=== PATIENT | male | born 1945 | race Caucasian/White ===

== ENCOUNTER 2017-11-09 02:06 | Emergency (ER) | payer OTHER, BC ==
--- OUTSIDE RECORDS SUMMARY | 2017-11-09 02:09 | XMS REPORT | Clinical Summary ---
:1945 Author Organization [facility] Address [address] [place] [address] Care Team Providers Name Role Phone Luis Angel Landon MD Primary Care Provider Allergies No Known Allergies Current Medications Prescription Sig. Disp. Refills Start Date End Date Status irbesartan (AVAPRO) 300 MG TK 1 T PO QD 1 01/19/2016 Active tablet hydrochlorothiazide Take 25 mg by 1 11/09/2015 Active (HYDRODIURIL) 25 MG tablet mouth once daily. glimepiride (AMARYL) 4 MG Take 4 mg by 1 12/17/2015 Active tablet mouth 2 (two) times a day. carvedilol (COREG) 25 MG Take 25 mg by Active tablet mouth 2 (two) times a day with meals. busPIRone (BUSPAR) 10 MG Take 10 mg by Active tablet mouth 3 (three) times a day. clonIDINE HCl (CATAPRES) 0.3 Take 0.3 mg by Active MG tablet mouth 2 (two) times a day. saxagliptin (ONGLYZA) 5 mg Take 2.5 mg by Active tablet mouth daily. cholecalciferol, vitamin D3, Take 2,000 Active (VITAMIN D3) 2,000 unit Units by mouth capsule capsule daily. aspirin (ECOTRIN) 81 MG Take 81 mg by Active enteric coated tablet mouth daily. DULoxetine (CYMBALTA) 60 MG Take 60 mg by Active capsule mouth daily. tamsulosin (FLOMAX) 0.4 mg Take 0.4 mg by Active capsule,extended release 24hr mouth daily. finasteride (PROSCAR) 5 mg Take 5 mg by Active tablet mouth daily. pravastatin (PRAVACHOL) 40 MG Take 40 mg by Active tablet mouth daily. Active Problems Problem Noted Date HTN (hypertension) 01/30/2016 BPH (benign prostatic hyperplasia) 01/30/2016 HLD (hyperlipidemia) 01/30/2016 DM (diabetes mellitus screen) 01/30/2016 NADYA (obstructive sleep apnea) 01/30/2016 Colon polyps 01/30/2016 Family history of colon cancer 01/30/2016 Family History Medical History Relation Name Comments Pancreatic cancer Father Colon cancer Mother Relation Name Status Comments Father lung cancer Mother Social History Tobacco Use Types Packs/Day Years Used Date Never Smoker Alcohol Use Drinks/Week oz/Week Comments No Sex Assigned at Date Recorded Not on file Last Filed Vital Signs Not on file Plan of Treatment Health Maintenance Due Date Last Done Comments COLON CANCER SCREENING 01/15/1994 SHINGRIX VACCINE (#1) 01/15/1994 ZOSTER VACCINE 2004 PNEUMOCOCCAL POLYSACCHARIDE VACCINE AGE 65 AND OVER 01/15/2009 PNEUMOCOCCAL-13 01/15/2009 INFLUENZA VACCINE 12/23/2017 Results Not on fileafter 11/08/2016 Insurance Payer Benefit Plan / Group Subscriber ID Type Phone Address MEDICARE MEDICARE PART A AND B xxxxxxxxxx Medicare [place], [place] BCBS BCBS CHOICE PPO/FEDERAL EMPL PPO xxxxxxxxxxxx PPO Home: [address] [phone] [place] [phone]
[2017-11-09] MEDS ORDERED: HYDROCODONE/CHLORPHEN 5 ML/OSYR ONE (03:01)
[2017-11-09 03:07] LABS: Absolute Lymphocytes (CBC) 0.6 K/uL (0.7-4.9); Absolute Neutrophil 10.8 K/uL (1.8-8.0); Basophils % 0.2 % (0-1.3); Eosinophils % 0.8 % (0-4.4); Hematocrit 37.3 % (39.6-49.0); Lymphocytes % 5.1 % (15.3-44.8); MCH 31.7 pg (27.0-35.0); MCV 92.6 fL (80-100); Monocytes % 7.9 % (3.3-12.3); RBC Red Blood Cell Count 4.03 M/uL (4.33-5.43)
[2017-11-09 03:15] LABS: Potassium 4.2 mEq/L (3.6-5.0)
--- NOTE | 2017-11-09 03:15 | EDPHYS ---
Physician Documentation [facility] Name: Jose Ramon Romero Age: 72 yrs Sex: Male : 1945 Arrival Date: 11/09/2017 Time: 02:16 Bed 20 Private MD: Cortez Llanes V ED Physician Ty Moran HPI: 11/09 02:47 This 72 yrs old Male presents to ER via Ambulatory with complaints of Cough, pkl Congestion. 02:47 The patient or guardian reports cough, with productive sputum, that is white. Onset: pkl The symptoms/episode began/occurred yesterday. Associated signs and symptoms: Pertinent positives: sore throat. Historical: - Allergies: 02:41 No Known Allergies; bp - Home Meds: 02:41 amlodipine 10 mg tab 0.5 tab once daily for Hypertension [Active]; aspirin 81 mg Oral bp chew 1 tab once daily [Active]; buspirone 10 mg Oral tab 1 tab 2 times per day for Generalized Anxiety Disorder [Active]; carvedilol 25 mg Oral tab 1 tab 2 times per day for Hypertension [Active]; glipizide 10 mg Oral tab 0.5 tab 2 times per day for Type 2 Diabetes Mellitus [Active]; Onglyza 2.5 mg Oral tab 1 tab BID for Type 2 Diabetes Mellitus [Active]; irbesartan 300 mg Oral tab 1 tab once daily for Hypertension [Active]; Clonidine 3 mg Oral 1 tab 2 times per day for Hypertension [Active]; hydrochlorothiazide 25 mg Oral tab 1 tab once daily for Hypertension [Active]; duloxetine 60 mg Oral cpDR 1 cap once daily [Active]; tamsulosin 0.4 mg Oral cp24 1 cap once daily for Symptomatic Benign Prostatic Hyperplasia [Active]; finasteride 5 mg Oral tab 1 tab once daily for Symptomatic Benign Prostatic Hyperplasia [Active]; Pravachol 40 mg Oral tab 1 tab once daily [Active]; Vitamin D Oral 1000 unit daily [Active]; - PMHx: 02:41 BPH; Diabetes - NIDDM; Hyperlipidemia; Hypertension; bp - Immunization history:: Adult Immunizations up to date, Last tetanus immunization: up to date Pneumococcal vaccine is up to date, Flu vaccine is up to date. - Social history:: Smoking status: Patient/guardian denies using tobacco, Patient uses alcohol, occasionally. - Ebola Screening: : Patient negative for fever greater than or equal to 101.5 degrees Fahrenheit, and additional compatible Ebola Virus Disease symptoms Patient denies exposure to infectious person Patient denies travel to an Ebola-affected area in the 21 days before illness onset No symptoms or risks identified at this time. ROS: 02:47 Eyes: Negative for injury, pain, redness, and discharge. pkl 02:47 ENT: Positive for sore throat. 02:47 Neck: Negative for stiffness. 02:47 Cardiovascular: Negative for chest pain. 02:47 Respiratory: Positive for cough, with white sputum, Negative for shortness of breath, wheezing. 02:47 Abdomen/GI: Negative for abdominal pain, nausea, vomiting, and diarrhea. 02:47 Back: Negative for acute changes. 02:47 : Negative for urinary symptoms. 02:47 MS/extremity: Negative for acute changes. 02:47 Skin: Negative for rash. 02:47 Neuro: Negative for altered mental status. Exam: 02:47 Head/Face: Normocephalic, atraumatic. Eyes: Pupils equal round and reactive to light, pkl extra-ocular motions intact. Lids and lashes normal. Conjunctiva and sclera are non-icteric and not injected. Cornea within normal limits. Periorbital areas with no swelling, redness, or edema. 02:47 ENT: Posterior pharynx: erythema, that is mild. 02:47 Neck: Exam negative for nuchal rigidity. 02:47 Chest/axilla: Exam negative for acute changes. 02:47 Cardiovascular: Rate: normal, Rhythm: regular. 02:47 Respiratory: the patient does not display signs of respiratory distress, Respirations: normal, Breath sounds: are clear throughout. 02:47 Abdomen/GI: Bowel sounds: normal, Palpation: abdomen is soft and non-tender. 02:47 Back: Exam negative for acute changes. 02:47 : Exam negative for acute changes. 02:47 Musculoskeletal/extremity: Exam is negative for acute changes. 02:47 Skin: Exam negative for rash. 02:47 Neuro: Orientation: is normal, Mentation: is normal, Cranial nerves: grossly normal, Motor: is normal. Vital Signs: 02:41 BP 151 / 73; Pulse 84; Resp 18; Temp 97.8; Pulse Ox 97% ; Weight 99.79 kg; bp 03:26 BP 149 / 71; Pulse 80; Resp 16; Pulse Ox 96% ; bp MDM: 02:21 Patient medically screened. pkl 03:11 Data reviewed: lab test result(s), radiologic studies, plain films. pk 11/09 02:47 Order name: CBC with Diff; Complete Time: 03:11 pkl 11/09 02:47 Order name: Chem 7; Complete Time: 03:16 pkl 11/09 02:47 Order name: Strep; Complete Time: 03:23 pk 11/09 02:47 Order name: XRAY CXR (1 view) pk 11/09 03:19 Order name: Throat Culture EDMS Administered Medications: 03:01 Drug: Tussionex Pennkinetic ER 5 ml Route: PO; bp 03:25 Follow up: Response: Marked relief of symptoms bp 03:25 Drug: Zithromax 500 mg Route: PO; bp 03:25 Follow up: Response: Medication administered at discharge. bp Disposition: 11/09/17 03:14 Discharged to Home. Impression: Bronchitis. Pharyngitis. - Condition is Stable. - Prescriptions for Zithromax Z- Miller 250 mg Oral Tablet - take 1 tablet by ORAL route as directed for 5 days Day 1 - take two (2) tablets one time. Day 2, 3, 4 , 5 take one (1) tablet once daily.; 6 tablet. Guaifenesin AC 10- 100 mg/5 mL Oral Liquid - take 10 milliliters by ORAL route every 8 hours As needed; 120 milliliter. - Medication Reconciliation Form, Thank You Letter, Antibiotic Education, Prescription Opioid Use form. - Follow up: Cortez Llanes MD; When: 2 - 3 days; Reason: Re-evaluation by your physician. - Problem is new. - Symptoms have improved. Signatures: Dispatcher [employer] EDMS Ty Moran MD MD pkAlonzo Thomas, RN RN bp Corrections: (The following items were deleted from the chart) 03:28 03:14 11/09/2017 03:14 Discharged to Home. Impression: Bronchitis. Pharyngitis. bp Condition is Stable. Forms are Medication Reconciliation Form, Thank You Letter, Antibiotic Education, Prescription Opioid Use. Follow up: Cortez Llanes; When: 2 - 3 days; Reason: Re-evaluation by your physician. Problem is new. Symptoms have improved. pkl
--- NOTE | 2017-11-09 03:15 | ER ---
Nurse's Notes [facility] Name: Jose Ramon Romero Age: 72 yrs Sex: Male : 1945 Arrival Date: 11/09/2017 Time: 02:16 Bed 20 Private MD: Cortez Llanes V Diagnosis: Bronchitis. Pharyngitis Presentation: 11/09 02:30 Presenting complaint: Patient states: SORE THROAT AND CHEST CONGESTION/COUGH FOR ONE bp DAY. Transition of care: patient was not received from another setting of care. Onset of symptoms was November 07, 2017. Risk Assessment: Do you want to hurt yourself or someone else? Patient reports no desire to harm self or others. Initial Sepsis Screen: Does the patient meet any 2 criteria? No. Patient's initial sepsis screen is negative. Does the patient have a suspected source of infection? No. Patient's initial sepsis screen is negative. Care prior to arrival: None. 02:30 Method Of Arrival: Ambulatory bp 02:30 Acuity: MARIELOS 3 bp Triage Assessment: 02:41 General: Appears in no apparent distress. comfortable, obese, Behavior is calm, bp cooperative, appropriate for age. Pain: Complains of pain in chest. Respiratory: Airway is patent Respiratory effort is even, unlabored, Respiratory pattern is regular, symmetrical, Breath sounds with crackles. Historical: - Allergies: 02:41 No Known Allergies; bp - Home Meds: 02:41 amlodipine 10 mg tab 0.5 tab once daily for Hypertension [Active]; aspirin 81 mg Oral bp chew 1 tab once daily [Active]; buspirone 10 mg Oral tab 1 tab 2 times per day for Generalized Anxiety Disorder [Active]; carvedilol 25 mg Oral tab 1 tab 2 times per day for Hypertension [Active]; glipizide 10 mg Oral tab 0.5 tab 2 times per day for Type 2 Diabetes Mellitus [Active]; Onglyza 2.5 mg Oral tab 1 tab BID for Type 2 Diabetes Mellitus [Active]; irbesartan 300 mg Oral tab 1 tab once daily for Hypertension [Active]; Clonidine 3 mg Oral 1 tab 2 times per day for Hypertension [Active]; hydrochlorothiazide 25 mg Oral tab 1 tab once daily for Hypertension [Active]; duloxetine 60 mg Oral cpDR 1 cap once daily [Active]; tamsulosin 0.4 mg Oral cp24 1 cap once daily for Symptomatic Benign Prostatic Hyperplasia [Active]; finasteride 5 mg Oral tab 1 tab once daily for Symptomatic Benign Prostatic Hyperplasia [Active]; Pravachol 40 mg Oral tab 1 tab once daily [Active]; Vitamin D Oral 1000 unit daily [Active]; - PMHx: 02:41 BPH; Diabetes - NIDDM; Hyperlipidemia; Hypertension; bp - Immunization history:: Adult Immunizations up to date, Last tetanus immunization: up to date Pneumococcal vaccine is up to date, Flu vaccine is up to date. - Social history:: Smoking status: Patient/guardian denies using tobacco, Patient uses alcohol, occasionally. - Ebola Screening: : Patient negative for fever greater than or equal to 101.5 degrees Fahrenheit, and additional compatible Ebola Virus Disease symptoms Patient denies exposure to infectious person Patient denies travel to an Ebola-affected area in the 21 days before illness onset No symptoms or risks identified at this time. Screenin:44 Abuse screen: Denies threats or abuse. Denies injuries from another. Nutritional bp screening: No deficits noted. Tuberculosis screening: No symptoms or risk factors identified. Fall Risk None identified. Assessment: 02:44 General: Appears in no apparent distress. comfortable, obese, Behavior is calm, bp cooperative, appropriate for age. Pain: Complains of pain in chest. Neuro: Level of Consciousness is awake, alert, obeys commands, Oriented to person, place, time, situation, Appropriate for age. Cardiovascular: Rhythm is sinus rhythm. Respiratory: Airway is patent Respiratory effort is even, unlabored, Respiratory pattern is regular, symmetrical. GI: No signs and/or symptoms were reported involving the gastrointestinal system. : No signs and/or symptoms were reported regarding the genitourinary system. EENT: No deficits noted. Derm: No deficits noted. Musculoskeletal: Circulation, motion, and sensation intact. Range of motion: intact in all extremities. 03:26 Reassessment: PT D/C HOME AMBULATORY, DX WITH BRONCHITIS. bp Vital Signs: 02:41 BP 151 / 73; Pulse 84; Resp 18; Temp 97.8; Pulse Ox 97% ; Weight 99.79 kg; bp 03:26 BP 149 / 71; Pulse 80; Resp 16; Pulse Ox 96% ; bp ED Course: 02:16 Patient arrived in ED. es 02:17 Cortez Llanes MD is Private Physician. es 02:21 Ty Moran MD is Attending Physician. pkl 02:25 Alonzo Hannah, RN is Primary Nurse. bp 02:36 Triage completed. bp 02:41 Arm band placed on. bp 02:44 Patient has correct armband on for positive identification. Bed in low position. Call bp light in reach. Side rails up X2. 03:01 X-ray completed. Portable x-ray completed in exam room. Patient tolerated procedure kw well. 03:02 XRAY CXR (1 view) In Process Unspecified. EDMS 03:13 Cortez Llanes MD is Referral Physician. pkl 03:26 No provider procedures requiring assistance completed. Patient did not have IV access bp during this emergency room visit. Administered Medications: 03:01 Drug: Tussionex Pennkinetic ER 5 ml Route: PO; bp 03:25 Follow up: Response: Marked relief of symptoms bp 03:25 Drug: Zithromax 500 mg Route: PO; bp 03:25 Follow up: Response: Medication administered at discharge. bp Outcome: 03:14 Discharge ordered by . pkl 03:27 Discharged to home ambulatory. bp 03:27 Condition: stable 03:27 Discharge instructions given to patient, Instructed on discharge instructions, follow up and referral plans. medication usage, Demonstrated understanding of instructions, follow-up care, medications, Prescriptions given X 2. 03:28 Patient left the ED. bp Signatures: Dispatcher [employer] EDFL Ty Moran MD MD pkl Brittany Wong Kimberlee Alonzo Hannah, RN RN bp
[2017-11-09] MEDS ORDERED: AZITHROMYCIN 250 MG TAB ONE (03:23)
[2017-11-09 05:15] VITALS: TEMP 97.8
[2017-11-09 05:16] VITALS: BP 149/71; O2SAT 96
--- NOTE | 2017-11-09 09:04 | RAD REPORT ---
EXAM DESCRIPTION: RAD - Chest Single View - 11/09/2017 3:02 am CLINICAL HISTORY: Cough and congestion COMPARISON: September 2016 TECHNIQUE: AP portable chest image was obtained 0259 hours . FINDINGS: No large mass or consolidation. Left hemidiaphragm remains poorly defined likely the affec ts of portable imaging and a slightly shallow inspiratory effort. Interstitial markings are minimally prominent and there does appear to be some minimal alveolar opacification. Heart and vasculature are normal. No measurable pleural effusion and no pneumothorax. No gross bony abnormality seen. No acute aortic findings suspected. IMPRESSION: Minimal prominence of the interstitial markings and alveoli compared to September 2016. Minimal edema or infiltrate suspected. No large mass or consolidation. Followup two view imaging may be helpful.
== END 2017-11-09 03:28 | disposition home or self-care (01) ==
LOC: ER 02:06
DX: J40 Bronchitis, not specified as acute or chronic (principal); J02.9 Acute pharyngitis, unspecified; N40.0 Benign prostatic hyperplasia without lower urinary tract symptoms; E11.9 Type 2 diabetes mellitus without complications; I10 Essential (primary) hypertension
CPT/HCPCS: 36415; 71045; 80048; 85025; 87070; 87081; 99284

== ENCOUNTER 2019-07-31 20:31 | Emergency (ER) | payer OTHER, BC ==
--- NOTE | 2019-07-31 21:41 | ER ---
Nurse's Notes [facility] Name: Jose Ramon Romero Age: 74 yrs Sex: Male : 1945 Arrival Date: 07/31/2019 Time: 20:34 Bed 14 Private MD: Diagnosis: Open wound of elbow and forearm Presentation: 07/30 20:47 Chief complaint: Patient states: At 0900 this morning his dog jumped on him and cut his aj1 elbow with his claws, when he looked in the mirror this afternoon it looked like it might need to be closed. Patient states that he does not know when his last tetanus shot was. Coronavirus screen: The patient has NOT traveled to a country currently being monitored by the CDC within the last 14 days. Ebola Screen: No symptoms or risks identified at this time. Initial Sepsis Screen: Does the patient meet any 2 criteria? No. Patient's initial sepsis screen is negative. Does the patient have a suspected source of infection? Yes: Skin breakdown/wound. Risk Assessment: Do you want to hurt yourself or someone else? Patient reports no desire to harm self or others. 20:47 Method Of Arrival: Ambulatory aj1 20:47 Acuity: MARIELOS 4 aj1 21:34 Onset of symptoms was July 31, 2019. lp1 Triage Assessment: 20:52 General: Appears in no apparent distress. comfortable, Behavior is calm, cooperative, aj1 appropriate for age. Pain: Denies pain. Neuro: Level of Consciousness is awake, alert, obeys commands. Cardiovascular: Patient's skin is warm and dry. Respiratory: Airway is patent Respiratory effort is even, unlabored, Respiratory pattern is regular, symmetrical. Musculoskeletal: Range of motion: intact in all extremities. Injury Description: Laceration sustained to left elbow. Historical: - Allergies: 20:52 No Known Allergies; aj1 - Home Meds: 20:52 amlodipine 10 mg tab 0.5 tab once daily for Hypertension [Active]; aspirin 81 mg Oral aj1 chew 1 tab once daily [Active]; buspirone 10 mg Oral tab 1 tab 2 times per day for Generalized Anxiety Disorder [Active]; carvedilol 25 mg Oral tab 1 tab 2 times per day for Hypertension [Active]; Clonidine 3 mg Oral 1 tab 2 times per day for Hypertension [Active]; duloxetine 60 mg Oral cpDR 1 cap once daily [Active]; finasteride 5 mg Oral tab 1 tab once daily for Symptomatic Benign Prostatic Hyperplasia [Active]; glipizide 10 mg Oral tab 0.5 tab 2 times per day for Type 2 Diabetes Mellitus [Active]; hydrochlorothiazide 25 mg Oral tab 1 tab once daily for Hypertension [Active]; irbesartan 300 mg Oral tab 1 tab once daily for Hypertension [Active]; Onglyza 2.5 mg Oral tab 1 tab BID for Type 2 Diabetes Mellitus [Active]; Pravachol 40 mg Oral tab 1 tab once daily [Active]; tamsulosin 0.4 mg Oral cp24 1 cap once daily for Symptomatic Benign Prostatic Hyperplasia [Active]; Vitamin D Oral 1000 unit daily [Active]; - PMHx: 20:52 BPH; Diabetes - NIDDM; Hyperlipidemia; Hypertension; aj1 - Immunization history:: Flu vaccine is up to date. - Social history:: Smoking status: Patient/guardian denies using tobacco. Screenin:33 Abuse screen: Denies threats or abuse. Denies injuries from another. Nutritional lp1 screening: No deficits noted. Tuberculosis screening: No symptoms or risk factors identified. Fall Risk None identified. Assessment: 21:15 General: Appears in no apparent distress. Behavior is calm, cooperative, appropriate lp1 for age. Pain: Denies pain. Neuro: No deficits noted. Cardiovascular: No deficits noted. Respiratory: No deficits noted. GI: No signs and/or symptoms were reported involving the gastrointestinal system. : No signs and/or symptoms were reported regarding the genitourinary system. EENT: No signs and/or symptoms were reported regarding the EENT system. Derm: Skin is pink, warm \T\ dry. Wound noted Wound is skin tear to left elbow, abrasion to left forearm. Musculoskeletal: No deficits noted. Vital Signs: 20:47 BP 152 / 72; Pulse 81; Resp 18; Temp 98.3; Pulse Ox 98% on R/A; Weight 97.07 kg (R); aj1 Height 5 ft. 8 in. (172.72 cm) (R); Pain 0/10; 20:47 Body Mass Index 32.54 (97.07 kg, 172.72 cm) aj1 ED Course: 20:34 Patient arrived in ED. jg7 20:49 Triage completed. aj1 20:52 Arm band placed on Patient placed in an exam room. aj1 21:11 Maryjo Liang, RN is Primary Nurse. lp1 21:31 [facility] snw 21:31 Elliott Tobias MD is Attending Physician. snw 21:33 Patient has correct armband on for positive identification. lp1 21:45 No provider procedures requiring assistance completed. Patient did not have IV access lp1 during this emergency room visit. Wound care: to skin tear to left elbow was cleaned with Hibiclens, dressed with Neosporin, band aid, Patient tolerated well. Administered Medications: 21:54 Drug: Tetanus-Diphtheria Toxoid Adult 0.5 ml {Cathode Washer: [employer]. Exp: lp1 04/22/2021. Lot #: [id number]. } Route: IM; Site: left deltoid; 21:55 Follow up: Response: Medication administered at discharge. lp1 Outcome: 21:39 Discharge ordered by MD. snw 21:55 Discharged to home ambulatory. lp1 21:55 Condition: good 21:55 Discharge instructions given to patient, Instructed on discharge instructions, follow up and referral plans. wound care, Demonstrated understanding of instructions, follow-up care, wound care. 21:55 Patient left the ED. lp1 Signatures: Steph Craig RN RN aj1 Hilda De Leon FNP-C FNP-Csnw Maryjo Liang, RN RN lp1 Frances Cole jg7
--- NOTE | 2019-07-31 21:41 | EDPHYS ---
Physician Documentation [facility] Name: Jose Ramon Romero Age: 74 yrs Sex: Male : 1945 Arrival Date: 07/31/2019 Time: 20:34 Bed 14 Private MD: ED Physician Elliott Tobias HPI: 07/30 22:26 This 74 yrs old Male presents to ER via Ambulatory with complaints of Elbow snw Injury. 22:26 The patient or guardian complains of injury. The complaints affect the left elbow. snw Context: The problem was sustained outdoors, resulted from accidental dog scratch. Onset: The symptoms/episode began/occurred suddenly, this morning. Associated signs and symptoms: The patient has no apparent associated signs or symptoms. Severity of symptoms: At their worst the symptoms were mild, in the emergency department the symptoms are unchanged. It is unknown whether or not the patient has had similar symptoms in the past. It is unknown whether or not the patient has recently seen a physician. concerned that he hasn't had a tetanus immunization in a long while. Historical: - Allergies: 20:52 No Known Allergies; aj1 - Home Meds: 20:52 amlodipine 10 mg tab 0.5 tab once daily for Hypertension [Active]; aspirin 81 mg Oral aj1 chew 1 tab once daily [Active]; buspirone 10 mg Oral tab 1 tab 2 times per day for Generalized Anxiety Disorder [Active]; carvedilol 25 mg Oral tab 1 tab 2 times per day for Hypertension [Active]; Clonidine 3 mg Oral 1 tab 2 times per day for Hypertension [Active]; duloxetine 60 mg Oral cpDR 1 cap once daily [Active]; finasteride 5 mg Oral tab 1 tab once daily for Symptomatic Benign Prostatic Hyperplasia [Active]; glipizide 10 mg Oral tab 0.5 tab 2 times per day for Type 2 Diabetes Mellitus [Active]; hydrochlorothiazide 25 mg Oral tab 1 tab once daily for Hypertension [Active]; irbesartan 300 mg Oral tab 1 tab once daily for Hypertension [Active]; Onglyza 2.5 mg Oral tab 1 tab BID for Type 2 Diabetes Mellitus [Active]; Pravachol 40 mg Oral tab 1 tab once daily [Active]; tamsulosin 0.4 mg Oral cp24 1 cap once daily for Symptomatic Benign Prostatic Hyperplasia [Active]; Vitamin D Oral 1000 unit daily [Active]; - PMHx: 20:52 BPH; Diabetes - NIDDM; Hyperlipidemia; Hypertension; aj1 - Immunization history:: Flu vaccine is up to date. - Social history:: Smoking status: Patient/guardian denies using tobacco. ROS: 22:25 Constitutional: Negative for fever, chills, and weight loss, Eyes: Negative for injury, snw pain, redness, and discharge, ENT: Negative for injury, pain, and discharge, Neck: Negative for injury, pain, and swelling, Cardiovascular: Negative for chest pain, palpitations, and edema, Respiratory: Negative for shortness of breath, cough, wheezing, and pleuritic chest pain, Abdomen/GI: Negative for abdominal pain, nausea, vomiting, diarrhea, and constipation, Back: Negative for injury and pain, : Negative for injury, bleeding, discharge, and swelling, MS/Extremity: Negative for injury and deformity, Neuro: Negative for headache, weakness, numbness, tingling, and seizure, Psych: Negative for depression, anxiety, suicide ideation, homicidal ideation, and hallucinations. 22:25 Skin: Positive for skin tear, laceration, scratch to left elbow post dog scratching skin. Exam: 22:23 Constitutional: This is a well developed, well nourished patient who is awake, alert, snw and in no acute distress. Head/Face: Normocephalic, atraumatic. Eyes: Pupils equal round and reactive to light, extra-ocular motions intact. Lids and lashes normal. Conjunctiva and sclera are non-icteric and not injected. Cornea within normal limits. Periorbital areas with no swelling, redness, or edema. ENT: Nares patent. No nasal discharge, no septal abnormalities noted. Tympanic membranes are normal and external auditory canals are clear. Oropharynx with no redness, swelling, or masses, exudates, or evidence of obstruction, uvula midline. Mucous membranes moist. Neck: Trachea midline, no thyromegaly or masses palpated, and no cervical lymphadenopathy. Supple, full range of motion without nuchal rigidity, or vertebral point tenderness. No Meningismus. Chest/axilla: Normal chest wall appearance and motion. Nontender with no deformity. No lesions are appreciated. Cardiovascular: Regular rate and rhythm with a normal S1 and S2. No gallops, murmurs, or rubs. Normal PMI, no JVD. No pulse deficits. Respiratory: Lungs have equal breath sounds bilaterally, clear to auscultation and percussion. No rales, rhonchi or wheezes noted. No increased work of breathing, no retractions or nasal flaring. Abdomen/GI: Soft, non-tender, with normal bowel sounds. No distension or tympany. No guarding or rebound. No evidence of tenderness throughout. Back: No spinal tenderness. No costovertebral tenderness. Full range of motion. MS/ Extremity: Pulses equal, no cyanosis. Neurovascular intact. Full, normal range of motion. Neuro: Awake and alert, GCS 15, oriented to person, place, time, and situation. Cranial nerves II-XII grossly intact. Motor strength 5/5 in all extremities. Sensory grossly intact. Cerebellar exam normal. Normal gait. Psych: Awake, alert, with orientation to person, place and time. Behavior, mood, and affect are within normal limits. 22:23 Skin: Appearance: normal except for affected area, injury, avulsion(s), a very small superficial skin tear and additional puncture wound to left lateral elbow, no other injury. Vital Signs: 20:47 BP 152 / 72; Pulse 81; Resp 18; Temp 98.3; Pulse Ox 98% on R/A; Weight 97.07 kg (R); aj1 Height 5 ft. 8 in. (172.72 cm) (R); Pain 0/10; 20:47 Body Mass Index 32.54 (97.07 kg, 172.72 cm) aj1 MDM: 21:33 Patient medically screened. snw 22:23 Data reviewed: vital signs, nurses notes. Data interpreted: Pulse oximetry: on room air snw is 98 %. Interpretation: normal. Counseling: I had a detailed discussion with the patient and/or guardian regarding: the historical points, exam findings, and any diagnostic results supporting the discharge/admit diagnosis, the need for outpatient follow up, to return to the emergency department if symptoms worsen or persist or if there are any questions or concerns that arise at home. Special discussion: I have referred the patient to see his PCP for further evaluation of high blood pressure. I discussed in detail with the patient the higher chance of wound infection based on his presenting history. Based on the history and exam findings, there is no indication for further emergent testing or inpatient evaluation. I discussed with the patient/guardian the need to see the primary care provider for further evaluation of the symptoms. 07/30 21:38 Order name: Wound Care; Complete Time: :44 snw 07/30 21:38 Order name: Wound dressing; Complete Time: :44 snw Administered Medications: 21:54 Drug: Tetanus-Diphtheria Toxoid Adult 0.5 ml {Healthcare Representative: [employer]. Exp: lp1 04/22/2021. Lot #: [id number]. } Route: IM; Site: left deltoid; 21:55 Follow up: Response: Medication administered at discharge. lp1 Disposition: 07/31 01:33 Co-signature as Attending Physician, Elliott Tobias MD. ma2 Disposition: 07/31/19 21:39 Discharged to Home. Impression: Open wound of elbow and forearm. - Condition is Stable. - Discharge Instructions: Delayed Wound Closure, Skin Tear Care, VIS, Tetanus, Diphtheria (Td) - CDC, Wound Care. - Medication Reconciliation Form, Thank You Letter, Antibiotic Education, Prescription Opioid Use form. - Follow up: Emergency Department; When: As needed; Reason: Worsening of condition. Follow up: Private Physician; When: 2 - 3 days; Reason: Recheck today's complaints, Continuance of care, Re-evaluation by your physician. Signatures: Steph Craig RN RN aj1 Hilda De Leon, ELEMENT WINDING MACHINE TENDER-C ELEMENT WINDING MACHINE TENDER-Csnw Maryjo Liang RN RN lp1 Elliott Tobias MD MD ma2 Corrections: (The following items were deleted from the chart) 07/30 21:55 21:39 07/31/2019 21:39 Discharged to Home. Impression: Open wound of elbow and forearm. lp1 Condition is Stable. Forms are Medication Reconciliation Form, Thank You Letter, Antibiotic Education, Prescription Opioid Use. Follow up: Emergency Department; When: As needed; Reason: Worsening of condition. Follow up: Private Physician; When: 2 - 3 days; Reason: Recheck today's complaints, Continuance of care, Re-evaluation by your physician. snw
[2019-07-31] MEDS ORDERED: TETANUS & DIPHTHERIA TOX,ADULT 0.5 ML VIAL ONE (21:50)
[2019-07-31 22:00] VITALS: BP 152/72; TEMP 98.3; O2SAT 98
== END 2019-07-31 21:55 | disposition home or self-care (01) ==
LOC: ER 20:31
DX: S51.812A Laceration without foreign body of left forearm, initial encounter (principal); W45.8XXA Other foreign body or object entering through skin, initial encounter; Y93.9 Activity, unspecified; Y92.9 Unspecified place or not applicable; I10 Essential (primary) hypertension; E11.9 Type 2 diabetes mellitus without complications; E78.5 Hyperlipidemia, unspecified; Z23 Encounter for immunization; Z79.82 Long term (current) use of aspirin; Z79.4 Long term (current) use of insulin
CPT/HCPCS: 90471; 90714; 99283